=== PATIENT | female | born 1985 | race American Indian/Alaskan Native ===

== ENCOUNTER 2016-12-26 18:24 | Emergency (ER) | payer MEDICAID, OTHER ==
[2016-12-26 18:55] VITALS: BMI 31.7
[2016-12-26 19:33] VITALS: TEMP 98.3
[2016-12-26 20:37] LABS: PH,URINE 6.5 (4.7-8.0); URINE BILIRUBIN NEGATIVE (NEGATIVE); URINE BLOOD NEGATIVE (NEGATIVE); URINE GLUCOSE (UA) NEGATIVE (NEGATIVE); URINE LEUKOCYTE ESTERASE MODERATE Leu/uL (NEGATIVE); URINE NITRATE POSITIVE (NEGATIVE); URINE PROTEIN 30 mg/dL (<30 mg/dL)
[2016-12-26 20:38] LABS: URINE APPEARANCE TURBID (CLEAR); URINE COLOR YELLOW (YELLOW)
[2016-12-26 20:40] LABS: URINE BACTERIA MANY (NEG); URINE EPITHELIAL CELLS MANY /hpf (0-5); URINE RBC NEGATIVE /hpf (0-2)
[2016-12-26 20:41] LABS: HCG,QUALITATIVE URINE POSITIVE (NEGATIVE)
--- NOTE | 2016-12-26 20:42 | ED PDOC ---
Arrival/HPI - General Chief Complaint: Female Genitourinary Time Seen by Provider: 12/26/16 19:24 Historian: Patient - History of Present Illness Narrative History of Present Illness (Text): 12/26/16 19:45 Stefan Max is a 31 year old female who presents to the emergency department 15 weeks , AB 3, complaining of occasional abdominal cramping discomfort and occasional scanty, pinkish vaginal discharge today. Patient also describes occasional burning in urination. Patient states that she gets care and was last seen by her stuffing machine operator a week and a half ago with similar symptoms and was told everything was fine. Patient denies any vaginal bleeding, fevers, chills, chest pain, shortness of breath, or any other complaints at this time. Time/Duration: 24 hours Symptom Onset: Gradual Symptom Course: Unchanged Activities at Onset: Light Context: Home Past Medical History - Provider Review Nursing Documentation Reviewed: Yes - Cardiac Other/Comment: "permanent bradycarida" - Pulmonary Hx Asthma: Yes - Neurological Hx Syncope: Yes - HEENT Hx HEENT Disorder: No Other/Comment: glasses - Renal Hx Renal Disorder: No - Endocrine/Metabolic Hx Endocrine Disorders: No - Hematological/Oncological Hx Blood Disorders: No - Integumentary Hx Dermatological Disorder: Yes Hx Psoriasis: Yes - Musculoskeletal/Rheumatological Hx Musculoskeletal Disorders: Yes Hx Arthritis: Yes - Gastrointestinal Hx Hemorrhoids: Yes - Genitourinary/Gynecological Hx Genitourinary Disorders: Yes Hx Sexually Transmitted Diseases: Yes Hx Urinary Tract Infection: Yes Other/Comment: "missed miscarriage with D&C" - Psychiatric Hx Psychophysiologic Disorder: Yes Hx Anxiety: Yes Hx Depression: Yes Hx Substance Use: No - Surgical History Hx Dilation and Curettage: Yes (2016) Other/Comment: x3 - Anesthesia Hx Anesthesia: No Family/Social History - Physician Review Nursing Documentation Reviewed: Yes Family/Social History: No Known Family HX Smoking Status: Former Smoker Hx Alcohol Use: No Hx Substance Use: No Allergies/Home Meds Allergies/Adverse Reactions: Allergies Penicillins Allergy (Verified 11/05/16 14:23) RASH tomato Allergy (Verified 11/05/16 14:23) SWELLING Home Medications: Home Meds Medication Instructions Recorded Confirmed Albuterol HFA [Ventolin HFA 90 2 puff IH PRN PRN 10/23/15 12/26/16 mcg/actuation (8 g)] Review of Systems - Physician Review All systems were reviewed & negative as marked: Yes - Review of Systems Constitutional: absent: Fevers, Night Sweats Eyes: absent: Vision Changes ENT: absent: Hearing Changes Respiratory: absent: SOB, Cough Cardiovascular: absent: Chest Pain Gastrointestinal: Abdominal Pain (cramping discomfort) Genitourinary Female: Vaginal Discharge ("pinkish"). absent: Dysuria Skin: absent: Rash, Pruritis Neurological: absent: Headache Endocrine: absent: Diaphoresis Hemo/Lymphatic: absent: Adenopathy Psychiatric: absent: Anxiety Physical Exam Vital Signs Reviewed: Yes Vital Signs Temp Pulse Resp BP Pulse Ox 12/26/16 20:52 63 17 115/70 99 12/26/16 18:55 98.3 F 61 18 111/68 100 Temperature: Afebrile Blood Pressure: Normal Pulse: Regular Respiratory Rate: Normal Appearance: Positive for: Well-Appearing, Non-Toxic, Comfortable Pain Distress: None Mental Status: Positive for: Alert and Oriented X 3 - Systems Exam Head: Present: Atraumatic, Normocephalic Pupils: Present: PERRL Extroacular Muscles: Present: EOMI Conjunctiva: Present: Normal Mouth: Present: Moist Mucous Membranes Neck: Present: Normal Range of Motion Respiratory/Chest: Present: Clear to Auscultation, Good Air Exchange. No: Respiratory Distress, Accessory Muscle Use Cardiovascular: Present: Regular Rate and Rhythm, Normal S1, S2. No: Murmurs Abdomen: Present: Distention (abdomen soft and mildly distended, consistent with gestational age; nontender), Normal Bowel Sounds Back: No: CVA Tenderness Upper Extremity: Present: Normal Inspection. No: Cyanosis, Edema Lower Extremity: Present: Normal Inspection. No: Edema Neurological: Present: GCS=15, CN II-XII Intact, Speech Normal Skin: Present: Warm, Dry, Normal Color. No: Rashes Psychiatric: Present: Alert, Oriented x 3, Normal Insight, Normal Concentration Medical Decision Making ED Course and Treatment: 12/26/16 20:30 Impression: 31 year old female complaining of occasional abdominal cramping discomfort and occasional scanty, pinkish vaginal discharge today. Plan: -- Age Ultrasound -- Type and Screen -- Urine Culture -- Labs -- Reassess and disposition Prior Visits: Notes and results from previous visits were reviewed. Patient last seen in the ED on 11/05/16 for Left lower flank pain that day. Patient was discharged home. Progress Notes: 12/26/16 21:35 US results reviewed: IMPRESSION: 1. Single live intrauterine gestation. 2. Low-lying placenta. 12/26/16 21:57 Patient eloped the emergency department prior to completion of treatment and lab results. - Lab Interpretations Lab Results: 12/26/16 20:50 12/26/16 20:50 Lab Results 12/26/16 20:50: Blood Type Pending, Antibody Screen Pending, BBK History Checked Patient has bt 12/26/16 20:50: WBC 6.3, RBC 4.34, Hgb 12.8, Hct 36.4, MCV 83.9, MCH 29.5, MCHC 35.2, RDW 12.6, Plt Count 120, MPV 12.1 H 12/26/16 20:50: Sodium 135, Potassium 4.0, Chloride 102, Carbon Dioxide 24, Anion Gap 13, BUN 7, Creatinine 0.5, Est GFR ( Amer) > 60, Est GFR (Non- Af Amer) > 60, Random Glucose 78, Calcium 9.0, Total Bilirubin 0.4, AST 20, ALT 22, Alkaline Phosphatase 97, Total Protein 6.9, Albumin 3.7, Globulin 3.2, Albumin/Globulin Ratio 1.2 12/26/16 20:15: Urine Color Yellow, Urine Appearance Turbid, Urine pH 6.5, Ur Specific [place] 1.025, Urine Protein 30 H, Urine Glucose (UA) Negative, Urine Ketones Negative, Urine Blood Negative, Urine Nitrate Positive H, Urine Bilirubin Negative, Urine Urobilinogen 2.0 H, Ur Leukocyte Esterase Moderate H, Urine RBC Negative, Urine WBC 1 - 3, Ur Epithelial Cells Many, Urine Bacteria Many, Urine HCG, Qual Positive I have reviewed the lab results: Yes - RAD Interpretation Narrative RAD Interpretations (Text): EXAM: US After First Trimester, Transabdominal Dictated and Authenticated by: Michael Murry MD FINDINGS: Fetus: Single live intrauterine gestation. Heart rate: heart rate of 141 beats per minute. Presentation: Cephalic. Placenta: Posterior. No placental abruption. Placenta tip 1.0 cm from cervical os. Amniotic fluid: Normal. Anatomy: No gross anomaly is appreciated. BIOMETRICS Gestational age by US: Estimated gestational age of 17 weeks 1 day by measurements. EFW: Estimated weight of 182 g. BPD: 3.6 cm, correlating with 17 weeks 1 day. HC: 13.7 cm, correlating with 17 weeks 1 day. AC: 10.9 cm, correlating with 16 weeks 6 days. FL: 2.5 cm, correlating with 17 weeks 3 days. MATERNAL: Uterus: Unremarkable. No myometrial mass. Cervix: No cervical dilatation or effacement. Adnexa: Ovaries not visualized. No adnexal masses. Free fluid: No significant free fluid. IMPRESSION: 1. Single live intrauterine gestation. 2. Low-lying placenta. 3. Incidental/non-acute findings are described above. Radiology Orders: 12/26/16 19:49 AGE [US] Stat Animal Science Instructor: Radiologist - Scribe Statement The provider has reviewed the documentation as recorded by the Scribe Sharron Green Provider Scribe Attestation: All medical record entries made by the Scribe were at my direction and personally dictated by me. I have reviewed the chart and agree that the record accurately reflects my personal performance of the history, physical exam, medical decision making, and the department course for this patient. I have also personally directed, reviewed, and agree with the discharge instructions and disposition. Disposition/Present on Arrival - Present on Arrival Any Indicators Present on Arrival: No History of DVT/PE: No History of Uncontrolled Diabetes: No Urinary Catheter: No History of Decub. Ulcer: No History Surgical Site Infection Following: None - Disposition Have Diagnosis and Disposition been Completed?: Yes Diagnosis: Threatened Disposition: ELOPEMENT - ER ONLY Disposition Time: 21:45 Condition: STABLE Referrals: PCP,NO [Primary Care Provider] - Follow up with primary Forms: [employer] (Kinyarwanda)
[2016-12-26 20:53] VITALS: BP 115/70; PULSE 63; RESP 17; O2SAT 99
--- NOTE | 2016-12-26 21:05 | US ---
EXAM: US After First Trimester, Transabdominal CLINICAL HISTORY: 31 years old, female; Pain; complicated by abdominal or pelvic pain; Generalized abdominal pain; Second trimester; Gestational age or lmp: 16 weeks 6 day; TECHNIQUE: Real-time transabdominal obstetrical ultrasound of the maternal pelvis and a second or third trimester with image documentation. COMPARISON: No relevant prior studies available. FINDINGS: Fetus: Single live intrauterine gestation. Heart rate: heart rate of 141 beats per minute. Presentation: Cephalic. Placenta: Posterior. No placental abruption. Placenta tip 1.0 cm from cervical os. Amniotic fluid: Normal. Anatomy: No gross anomaly is appreciated. BIOMETRICS Gestational age by US: Estimated gestational age of 17 weeks 1 day by measurements. EFW: Estimated weight of 182 g. BPD: 3.6 cm, correlating with 17 weeks 1 day. HC: 13.7 cm, correlating with 17 weeks 1 day. AC: 10.9 cm, correlating with 16 weeks 6 days. FL: 2.5 cm, correlating with 17 weeks 3 days. MATERNAL: Uterus: Unremarkable. No myometrial mass. Cervix: No cervical dilatation or effacement. Adnexa: Ovaries not visualized. No adnexal masses. Free fluid: No significant free fluid. IMPRESSION: 1. Single live intrauterine gestation. 2. Low-lying placenta. 3. Incidental/non-acute findings are described above.
[2016-12-26 21:14] LABS: HEMOGLOBIN 12.8 g/dL (12.0-16.0); MEAN CELL VOLUME 83.9 fl (80.0-105.0); MEAN CORPUSCULAR HEMOGLOBIN 29.5 pg (25.0-35.0); MEAN CORPUSCULAR HGB CONC 35.2 g/dl (31.0-37.0); MEAN PLATELET VOLUME 12.1 fl (7.0-11.0); RBC 4.34 10^6/uL (3.5-6.1); RED CELL DISTRIBUTION WIDTH 12.6 % (11.5-14.5); WHITE BLOOD COUNT 6.3 10^3/ul (4.5-11.0)
[2016-12-26 21:20] LABS: ALB/GLOB RATIO 1.2 (1.1-1.8); ALBUMIN 3.7 g/dL (3.0-4.8); ALT/SGPT 22 U/L (7-56); AST/SGOT 20 U/L (15-39); BLOOD UREA NITROGEN 7 mg/dL (7-21); GFR AFRICAN-AMERICAN > 60; GFR NON-AFRICAN AMERICAN > 60
== END 2016-12-26 21:45 | disposition left against medical advice (07) ==
LOC: ED 18:24
DX: O20.0 Threatened abortion (principal); Z3A.17 17 weeks gestation of pregnancy

== ENCOUNTER 2017-03-11 13:46 | Emergency (ER) | payer OTHER ==
[2017-03-11 14:05] VITALS: BMI 32.5
--- NOTE | 2017-03-11 14:17 | ED PDOC ---
Arrival/HPI - General Chief Complaint: Abdominal Pain Time Seen by Provider: 03/11/17 13:52 Historian: Patient - History of Present Illness Narrative History of Present Illness (Text): 03/11/17 14:14 A 32 year old female, , presents to the emergency department with lower abdominal cramping and lower back pain. The patient states that the pain began this morning at around 9AM. The patient denies fevers, chills, headache, dizziness, chest pain, shortness of breath, dyspnea on exertion, cough, abdominal pain, nausea, vomiting, diarrhea, back pain, neck pain, urinary/bowel changes, vaginal discharge/bleeding or any other complaint. Time/Duration: Other (This Morning) Symptom Onset: Sudden Symptom Course: Unchanged Activities at Onset: Rest, Light Context: Home Past Medical History - Provider Review Nursing Documentation Reviewed: Yes - Cardiac Other/Comment: "permanent bradycarida" - Pulmonary Hx Asthma: Yes - Neurological Hx Syncope: Yes - HEENT Hx HEENT Disorder: No Other/Comment: glasses - Renal Hx Renal Disorder: No - Endocrine/Metabolic Hx Endocrine Disorders: No - Hematological/Oncological Hx Blood Disorders: No - Integumentary Hx Dermatological Disorder: Yes Hx Psoriasis: Yes - Musculoskeletal/Rheumatological Hx Musculoskeletal Disorders: Yes Hx Arthritis: Yes - Gastrointestinal Hx Hemorrhoids: Yes - Genitourinary/Gynecological Hx Genitourinary Disorders: Yes Hx Sexually Transmitted Diseases: Yes Hx Urinary Tract Infection: Yes Other/Comment: "missed miscarriage with D&C" - Psychiatric Hx Psychophysiologic Disorder: Yes Hx Anxiety: Yes Hx Depression: Yes Hx Substance Use: No - Surgical History Hx Dilation and Curettage: Yes (2016) Other/Comment: x3 - Anesthesia Hx Anesthesia: No Family/Social History - Physician Review Nursing Documentation Reviewed: Yes Family/Social History: No Known Family HX Smoking Status: Former Smoker Hx Alcohol Use: No Hx Substance Use: No Allergies/Home Meds Allergies/Adverse Reactions: Allergies Penicillins Allergy (Verified 03/11/17 14:06) RASH tomato Allergy (Verified 03/11/17 14:06) SWELLING Home Medications: Home Meds Medication Instructions Recorded Confirmed Albuterol HFA [Ventolin HFA 90 2 puff IH PRN PRN 10/23/15 03/11/17 mcg/actuation (8 g)] Review of Systems - Physician Review All systems were reviewed & negative as marked: Yes - Review of Systems Constitutional: absent: Fevers, Night Sweats ENT: absent: Sore Throat Respiratory: absent: SOB, Cough Cardiovascular: absent: Chest Pain, MCRAE Gastrointestinal: Abdominal Pain. absent: Stool Changes, Diarrhea, Nausea, Vomiting Genitourinary Female: absent: Urine Output Changes, Vaginal Bleeding, Vaginal Discharge Musculoskeletal: Back Pain. absent: Neck Pain Neurological: absent: Headache, Dizziness Physical Exam Vital Signs Reviewed: Yes Vital Signs Temp Pulse Resp BP Pulse Ox 03/11/17 15:20 98 F 75 20 116/77 99 03/11/17 14:04 98.1 F 77 16 113/77 100 Temperature: Afebrile Blood Pressure: Normal Pulse: Regular Respiratory Rate: Normal Appearance: Positive for: Uncomfortable Pain Distress: Mild Mental Status: Positive for: Alert and Oriented X 3 - Systems Exam Head: Present: Atraumatic, Normocephalic Pupils: Present: PERRL Extroacular Muscles: Present: EOMI Conjunctiva: Present: Normal Mouth: Present: Moist Mucous Membranes Neck: Present: Normal Range of Motion Respiratory/Chest: Present: Clear to Auscultation, Good Air Exchange. No: Respiratory Distress, Accessory Muscle Use Cardiovascular: Present: Regular Rate and Rhythm, Normal S1, S2. No: Murmurs Abdomen: Present: Normal Bowel Sounds. No: Tenderness, Distention, Peritoneal Signs Back: Present: Normal Inspection Upper Extremity: Present: Normal Inspection. No: Cyanosis, Edema Lower Extremity: Present: Normal Inspection. No: Edema Neurological: Present: GCS=15, CN II-XII Intact, Speech Normal Skin: Present: Warm, Dry, Normal Color. No: Rashes Psychiatric: Present: Alert, Oriented x 3, Normal Insight, Normal Concentration Medical Decision Making ED Course and Treatment: 03/11/17 14:17 Impression: A 32 year old female, 28 weeks , presents to the emergency department with lower abdominal cramping since this morning. Plan: -- Labs -- Urinalysis -- Reassess and disposition Prior Visits: Notes and results from previous visits were reviewed. Patient was last seen in the emergency department on 12/26/2016. The patient was seen in the emergency department complaining of occasional abdominal cramping and vaginal discharge. The patient eloped the emergency department. Progress Notes: 10/28/17 14:38: Case was discussed with Dr. Chang. Accepts patient to her service. Patient will be transferred. [facility] has been called. - Lab Interpretations I have reviewed the lab results: Yes - Scribe Statement The provider has reviewed the documentation as recorded by the Scribe Serene Cook Provider Scribe Attestation: All medical record entries made by the Scribe were at my direction and personally dictated by me. I have reviewed the chart and agree that the record accurately reflects my personal performance of the history, physical exam, medical decision making, and the department course for this patient. I have also personally directed, reviewed, and agree with the discharge instructions and disposition. Disposition/Present on Arrival - Present on Arrival Any Indicators Present on Arrival: No History of DVT/PE: No History of Uncontrolled Diabetes: No Urinary Catheter: No History of Decub. Ulcer: No History Surgical Site Infection Following: None - Disposition Have Diagnosis and Disposition been Completed?: Yes Diagnosis: Abdominal pain Disposition: Trans to Other Acute Care Hosp Disposition Time: 03:00 Condition: STABLE Referrals: Kitty Chang MD [Primary Care Provider] - Follow up with primary Forms: [employer] (Lithuanian)
[2017-03-11 15:50] VITALS: BP 116/77; PULSE 75; RESP 20; TEMP 98; O2SAT 99
== END 2017-03-11 15:52 | disposition short-term general hospital (02) ==
LOC: ED 13:46
DX: O26.893 Other specified pregnancy related conditions, third trimester (principal); Z3A.28 28 weeks gestation of pregnancy; R10.30 Lower abdominal pain, unspecified